=== PATIENT | female | born 1960 | race Caucasian/White ===

== ENCOUNTER → 2020-08-06 16:04 | Outpatient (CLI) | payer OTHER, SELFPAY ==
--- NOTE | 2020-08-06 16:06 | DI.MG.S_ITS ---
BILATERAL DIGITAL SCREENING MAMMOGRAM 3D/2D WITH CAD: 08/06/2020 CLINICAL: Routine screening. Baseline exam. No prior exams were available for comparison. The tissue of both breasts is heterogeneously dense. This may lower the sensitivity of mammography. Current study was also evaluated with a Computer Aided Detection (CAD) system. There are grouped fine calcifications in the right breast at 11 o'clock middle depth. No other significant masses, calcifications, or other findings are seen in either breast. IMPRESSION: INCOMPLETE: NEEDS ADDITIONAL IMAGING EVALUATION The grouped fine calcifications in the right breast are indeterminate. Mediolateral, spot magnification, and additional views are recommended. This exam was interpreted at Station ID: [id number]. NOTE: For mammograms, a report in lay terms will be sent to the patient. Approximately 15% of breast malignancies will not be visualized mammographically. In the management of a palpable breast mass, a negative mammogram must not discourage biopsy of a clinically suspicious lesion. Electronically Signed By: Flako hines/martin:08/07/2020 08:11:20 letter sent: Additional Imaging Needed ACR BI-RADS Category 0: Incomplete 3340F
== END ==
PROVIDERS: PCP Student in an Organized Health Care Education/Training Program; Referring Provider Student in an Organized Health Care Education/Training Program; Visit Provider Student in an Organized Health Care Education/Training Program
DX: Z12.31 Encounter for screening mammogram for malignant neoplasm of breast (principal)
CPT/HCPCS: 77063; 77067

== ENCOUNTER → 2020-08-14 08:45 | Outpatient (CLI) | payer OTHER, SELFPAY ==
--- NOTE | 2020-08-14 | DI.MG.S_ITS ---
UNILATERAL RIGHT DIGITAL DIAGNOSTIC MAMMOGRAM 3D/2D WITH ADDITIONAL VIEWS: 08/14/2020 CLINICAL: Additional evaluation requested from prior study. Comparison is made to exam dated: 08/06/2020 [facility]. The tissue of right breast is heterogeneously dense. This may lower the sensitivity of mammography. There are grouped fine calcifications in the right breast at 11 o'clock posterior depth. These are less prominent. No other significant masses or calcifications are seen in the breast. IMPRESSION: PROBABLY BENIGN The grouped fine calcifications in the right breast are probably benign. A follow-up right mammogram in 6 months is recommended to demonstrate stability. This exam was interpreted at Station ID: [id number]. NOTE: For mammograms, a report in lay terms will be sent to the patient. Approximately 15% of breast malignancies will not be visualized mammographically. In the management of a palpable breast mass, a negative mammogram must not discourage biopsy of a clinically suspicious lesion. Electronically Signed By: Naga segundo/martin:08/14/2020 09:44:03 letter sent: Followup Recommended ACR BI-RADS Category 3: Probably benign 3343F
== END ==
PROVIDERS: PCP Student in an Organized Health Care Education/Training Program; Referring Provider Student in an Organized Health Care Education/Training Program; Visit Provider Student in an Organized Health Care Education/Training Program
DX: R92.8 Other abnormal and inconclusive findings on diagnostic imaging of breast (principal); R92.1 Mammographic calcification found on diagnostic imaging of breast
CPT/HCPCS: 77065; G0279

== ENCOUNTER → 2023-01-31 10:50 | Outpatient (CLI) | payer OTHER, SELFPAY ==
--- NOTE | 2023-01-31 10:51 | DI.RAD.S_ITS ---
PROCEDURE: XR WRIST LT MIN 3V INDICATIONS: left wrist pain and deformity TECHNIQUE: 3 views of the wrist were acquired. COMPARISON: None. FINDINGS: Bones: Comminuted and impacted fracture of the distal radius with intra-articular extension and volar angulation of the distal fracture fragment. Soft tissues: No suspicious soft tissue calcifications. IMPRESSION: Distal radial fracture. Dictated by: Andrade Palmer M.D. on 01/31/2023 at 11:37 Approved by: Andrade Palmer M.D. on 01/31/2023 at 11:38
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
== END ==
PROVIDERS: PCP Student in an Organized Health Care Education/Training Program; Referring Provider Physician Assistant; Visit Provider Physician Assistant
DX: S52.572A Other intraarticular fracture of lower end of left radius, initial encounter for closed fracture (principal); M25.532 Pain in left wrist; M79.642 Pain in left hand; X58.XXXA Exposure to other specified factors, initial encounter
CPT/HCPCS: 73110; 73130

== ENCOUNTER 2023-02-18 07:56 | Day surgery (SDC) | payer OTHER, SELFPAY ==
[2023-02-16 10:48] VITALS: BMI 23.6
[2023-02-18] VITALS (9 sets, daily range): BP systolic 125–155; BP diastolic 85–99; PULSE 70–79; RESP 12–16; TEMP 36.1–36.4; O2SAT 95–97; BMI 23.6
--- NOTE | 2023-02-18 07:54 | PM.PREOP ---
Pre-operative Note Interval Note History & Physical reviewed/Exam performed by Physician: Yes Changes to H&P: No
--- NOTE | 2023-02-18 08:25 | SUR.PREOP ---
Block start time [0825] . Monitoring initiated and maintained throughout procedure. Time out performed. Oxygen and medications given per anesthesiologist instructions. Patient remained stable throughout procedure, no adverse reactions noted. Block end time 0836.
[2023-02-18] MEDS: LACTATED RINGERS 1,000 ML 42 ML IV (08:39)
[2023-02-18] MEDS: CEFAZOLIN 2 GM/100 ML PREMIX 100 ML IV (08:45)
--- NOTE | 2023-02-18 09:25 | SUR.OPER ---
Supine on padded OR bed, head on pillow, operative arm on padded hand table draped to field, non-operative arm secured on padded arm board at <90 degrees abduction, legs uncrossed, safety belt at thigh.
--- NOTE | 2023-02-18 10:04 | P.OP_ITS ---
Operative Date/Time/Diagnoses Date of procedure: 02/18/23 Time of procedure: 10:05 Pre-op diagnosis: Left intra-articular over three-part distal radius fracture Post-op diagnosis: same Procedure & Clinicians Procedure: Open reduction internal fixation left distal radius fracture, intra-articular over 3 parts Same procedure as scheduled: Yes Indications: Indications: 62-year-old female who had a fall sustaining this intra-articular distal radius fracture. She initially opted for nonoperative management however due to development of significant deformity and continuing pain she wished to go forward with surgery. Risks and benefits of surgery were discussed again including the risk of infection, damage to internal structures, bleeding, nerve injury, instability, need for revision surgery, blood clots, anesthesia and . No guarantees were made regarding outcomes. Patient expressed understanding and accepted these risks and wished to go forward with surgery and consent was signed. Surgeon: Ankur Macedo Electric Scoop Operator: Julio César Skinner Operative Notes Findings: Multi part, comminuted intra-articular distal radius fracture (over 3 parts) with intervening callus formation due to the length of time between injury and surgery. Closure Type: primary Specimen(s): none sent Prosthetic devices, grafts, tissues, transplants, or devices: Standard Acumed locking distal radius plate Estimated Blood Loss (mL): 10 Blood products transfused: none Tourniquet time (min): 60 Procedure in detail: Patient was met in the preoperative holding area. Her left upper extremity was examined and marked with my initials. We again went over consent discussed the risks including the risks of bleeding, infection, damage to internal structures including the radial artery and median nerve, numbness and tingling, failure of implants, malunion, and future surgery. All of her questions were answered fully to her satisfaction and she wished to go forward with the surgery. She was brought back to the operating room and placed supine on operating table. She underwent smooth induction of anesthesia and antibiotics were given. Tourniquet was applied to the left upper extremity. He was then prepped and draped in the standard sterile fashion. My initials were again examined on the operative extremity and a time-out was performed. We began with a modified Kishore approach to the volar distal radius on the left side. FCR and FPL were retracted ulnarly and the radial artery was retracted radially. Pronator quadratus was elevated off of the distal radius and the fracture was encountered. A manual reduction was performed An Acumed distal radius locking plate was applied to the distal radius and positioned provisionally with a lobster claw. The oblong shaft screw was then filled with a nonlocking cortical screw. We then sequentially filled the distal locking holes with locking screws. In 1 of the radial screws, a fraglock screw was placed in order to capture the posterior fragment that was creating a coronal split in the joint line. We then returned to the shaft and filled the last 2 remaining nonlocking cortical holes. The provisional K-wire was removed and final images were obtained confirming screw length and maintenance of reduction. Skin was then closed with 3-0 Vicryl and 4-0 Monocryl. Wound was then dressed with Xeroform, 4x4s, cast padding and a volar splint. Assisting participation: This operation could not have been safely performed (without compromising the technical results or length of the procedure) without the assistance of a skilled surgical elastic knitter hand frame. The surgical elastic knitter hand frame was medically necessary for proper positioning, retraction and manipulation of instruments, proper exposure, graft prep, and manipulation of tissue. Complications: none Post-operative Condition: stable Disposition: PACU Plan for aftercare: Patient will be placed into a volar splint to protect the wound. She will follow up with me in 3 weeks for a wound check and will be placed into a Velcro wrist splint at that time. She may come out of the Velcro wrist splint for showering in finger range of motion. Wrist range of motion should not begin until the 8 week dianna.
--- NOTE | 2023-02-18 11:45 | SUR.PHASEII ---
Talked to pt at length about her discharge. Pt leaving for [place] tomorrow and RN talked to pt about what to do on plane and how to take her medications. Pt states Dr. Bertrand is aware she is going to [place] in the am.
== END 2023-02-18 11:40 | disposition home or self-care (01) ==
PROVIDERS: Referring Provider Orthopaedic Surgery; Visit Provider Orthopaedic Surgery
PROC: (CPT 25609; principal; 2023-02-18 10:45)
DX: S52.572A Other intraarticular fracture of lower end of left radius, initial encounter for closed fracture (principal); G89.18 Other acute postprocedural pain; V19.3XXA Pedal cyclist (driver) (passenger) injured in unspecified nontraffic accident, initial encounter
CPT/HCPCS: 25609; 64450; J0690; J1100; J2250; J2405; J2704; J3010

== ENCOUNTER → 2023-06-28 07:06 | Outpatient (CLI) | payer OTHER, SELFPAY ==
--- NOTE | 2023-06-28 08:12 | DI.MG.S_ITS ---
BILATERAL DIGITAL SCREENING MAMMOGRAM 3D/2D WITH CAD: 06/28/2023 CLINICAL: Routine screening. Comparison is made to exams dated: 08/06/2020 mammogram and 08/14/2020 mammogram - [facility]. Both breasts are heterogeneously dense, which may obscure small masses (category c / 51-75% glandular tissue). Current study was also evaluated with a Computer Aided Detection (CAD) system. There are benign calcifications in the right breast. No significant masses, calcifications, or other findings are seen in either breast. There has been no significant interval change. IMPRESSION: BENIGN There is no mammographic evidence of malignancy. A 1 year screening mammogram is recommended. Based on the Tyrer Cuzick model (a risk assessment model) the patient's lifetime risk is 11.9% and her 10 year risk is 5.2%. According to the ACR, ACS, and NCCN guidelines, an annual breast MRI exam along with mammogram is recommended if the patient's lifetime risk is 20% or greater. This exam was interpreted at Station ID: [id number]. NOTE: For mammograms, a report in lay terms will be sent to the patient. Approximately 15% of breast malignancies will not be visualized mammographically. In the management of a palpable breast mass, a negative mammogram must not discourage biopsy of a clinically suspicious lesion. Electronically Signed By: Naga segundo/martin:06/28/2023 11:59:54 letter sent: Normal Exam ACR BI-RADS Category 2: Benign Finding(s) 3342F
== END ==
LOC: MAMMO 07:07
PROVIDERS: PCP Student in an Organized Health Care Education/Training Program; Referring Provider Student in an Organized Health Care Education/Training Program; Visit Provider Student in an Organized Health Care Education/Training Program
DX: Z12.31 Encounter for screening mammogram for malignant neoplasm of breast (principal); R92.333 Mammographic heterogeneous density, bilateral breasts
CPT/HCPCS: 77063; 77067